=== PATIENT | male | born 1985 | race Caucasian/White ===

== ENCOUNTER 2018-04-06 04:07 | Emergency (ER) | payer SELFPAY ==
[~2018-04-06] VITALS: Ht 172.7 cm; Wt 128.4 kg
[2018-04-06 04:13] VITALS: Ht 172.7 cm; Wt 128.4 kg
[2018-04-06 04:45] LABS: BASOPHIL % 0.4 % (0-2); PLATELET COUNT 276 x10^3mcL (130-400); RED CELL DISTRIBUTION WIDTH 14.2 % (11.5-14.5)
[2018-04-06 04:55] LABS: CALCIUM 8.1 mg/dL (8.5-10.1); CARBON DIOXIDE 27.2 mmol/L (21-32); CHLORIDE SERUM 103 mmol/L (98-107); CREATININE SERUM 0.8 mg/dL (0.7-1.3); GFR1 > 60 mL/min; GLUCOSE SERUM 103 mg/dL (74-106); POTASSIUM SERUM 3.3 mmol/L (3.5-5.1); SODIUM SERUM 139 mmol/L (136-145)
[2018-04-06 05:08] LABS: ALBUMIN 3.6 g/dL (3.4-5.0); ALKALINE PHOSPHATASE 64 U/L (46-116); ALT/SGPT 30 U/L (16-63); AST/SGOT 21 U/L (15-37); BILIRUBIN TOTAL 0.3 mg/dL (0.20-1.00); LIPASE 183 IU/L (73-393); TOTAL PROTEIN, SERUM 7.9 g/dL (6.4-8.2)
[2018-04-06 05:21] LABS: UA SPECIFIC GRAVITY >=1.030 (1.005-1.035); microscopic required? YES; urine erythrocyte TRACE (NEGATIVE)
[2018-04-06 05:30] LABS: AMPHETAMINE QUAL UR NONE DETECTED (See below)
[2018-04-06 08:27] VITALS: BP 132/88
== END 2018-04-06 08:27 | disposition home or self-care (01) ==
LOC: ED 04:07
PROVIDERS: Emergency Medicine
DX: R06.89 Other abnormalities of breathing (principal); R07.2 Precordial pain
CPT/HCPCS: 36415; 83880

== ENCOUNTER 2018-04-06 18:44 | Emergency (ER) | payer SELFPAY ==
[~2018-04-06] VITALS: Ht 172.7 cm; Wt 127.0 kg
[2018-04-06 18:49] VITALS: Ht 172.7 cm; Wt 127.0 kg
[2018-04-06 20:38] VITALS: BP 138/73
== END 2018-04-06 20:38 | disposition home or self-care (01) ==
LOC: ED 18:44
DX: R06.02 Shortness of breath (principal); R10.13 Epigastric pain